=== PATIENT | male | born 1980 | race Hispanic/Latino ===

== ENCOUNTER 2023-01-21 09:12 | Emergency (ER) | payer OTHER ==
--- NOTE | 2023-01-21 09:25 | EDPHYS ---
Physician Documentation [facility] Name: José Miguel Brock Age: 42 yrs Sex: Male : 1980 Arrival Date: 01/21/2023 Time: 09:14 Bed 4 Private MD: ED Physician Jarad Roth HPI: 01/21 10:09 This 42 yrs old Male presents to ER via Ambulatory with complaints of kb Abdominal Pain. 10:09 The patient presents with abdominal pain right lower quadrant, in the left lower kb quadrant. Onset: The symptoms/episode began/occurred yesterday. The symptoms do not radiate. Associated signs and symptoms: none. The symptoms are described as constant. Modifying factors: The symptoms are alleviated by nothing, the symptoms are aggravated by pressure. Severity of pain: At its worst the pain was moderate in the emergency department the pain is unchanged. The patient has not experienced similar symptoms in the past. The patient has not recently seen a physician. Historical: - Allergies: 09:37 No Known Allergies; aa5 - PMHx: 09:37 None; aa5 - PSHx: 09:37 None; aa5 - Immunization history:: Adult Immunizations unknown. - Social history:: Smoking status: Patient reports the use of cigarette tobacco products, smokes one-half pack cigarettes per day. ROS: 10:07 Constitutional: Negative for fever, chills, and weight loss. kb 10:07 Abdomen/GI: Positive for abdominal pain, Negative for nausea, vomiting, and diarrhea. 10:07 All other systems are negative. Exam: 10:07 Constitutional: This is a well developed, well nourished patient who is awake, alert, kb and in no acute distress. Head/Face: Normocephalic, atraumatic. ENT: Moist Mucous membranes Cardiovascular: Regular rate and rhythm with a normal S1 and S2. No gallops, murmurs, or rubs. No pulse deficits. Respiratory: Respirations even and unlabored. No increased work of breathing. Talking in full sentences Skin: Warm, dry with normal turgor. Normal color. MS/ Extremity: Pulses equal, no cyanosis. Neurovascular intact. Full, normal range of motion. Neuro: Awake and alert, GCS 15, oriented to person, place, time, and situation. Moves all extremities. Normal gait. Psych: Awake, alert, with orientation to person, place and time. Behavior, mood, and affect are within normal limits. 10:07 Abdomen/GI: Inspection: abdomen appears normal, Bowel sounds: normal, Palpation: soft, in all quadrants, moderate abdominal tenderness, in the right lower quadrant and left lower quadrant. Vital Signs: 09:22 BP 136 / 85; Pulse 75; Resp 16 S; Temp 98.3(O); Pulse Ox 96% on R/A; Weight 117.93 kg aa5 (R); Height 5 ft. 7 in. (170.18 cm) (R); 09:59 BP 128 / 90; Pulse 74; Resp 15; Pulse Ox 98% ; jl7 10:20 Pain 0/10; jl7 11:29 BP 122 / 87; Pulse 74; Resp 15; Pulse Ox 98% ; jl7 09:22 Body Mass Index 40.72 (117.93 kg, 170.18 cm) aa5 MDM: 09:25 Patient medically screened. kb 10:08 Differential diagnosis: appendicitis, diverticulitis, non-specific abd pain, kb Ureterolithiasis, urinary tract infection. Data reviewed: vital signs, nurses notes. ED course: Patient is a 42-year-old male with no medical history who presents for left lower quadrant pain that began yesterday. Denies any associated symptoms. On exam patient has moderate tenderness to right and left lower quadrants. Serum labs, urinalysis and CT scan ordered.. 11:13 Discussion of test interpretation with radiology: I had a discussion with radiology kb regarding a test interpretation. Discussed CT with Dr Johnson. Acute sigmoid diverticulitis. 11:15 Consideration of Admission/Observation Escalation of care including kb admission/observation considered. Admission considered for diverticulitis but patient is able to tolerate p.o. intake is well-appearing and would like to try oral outpatient antibiotics first. Counseling: I had a detailed discussion with the patient and/or guardian regarding: the historical points, exam findings, and any diagnostic results supporting the discharge/admit diagnosis, lab results, radiology results, the need for outpatient follow up, to return to the emergency department if symptoms worsen or persist or if there are any questions or concerns that arise at home. ED course: Patient is nontoxic in appearance, tolerating p.o. intake. Educated on diagnostic results and need for antibiotics. Educated on strict return precautions including worsening of pain, inability to tolerate antibiotics. Educated on importance of completing entire course of both antibiotics. Verbal understanding received.. 01/21 09:30 Order name: CBC with Diff; Complete Time: 10:01 kb 01/21 09:30 Order name: CMP; Complete Time: 10:20 kb 01/21 09:30 Order name: Lipase; Complete Time: 10:20 kb 01/21 09:30 Order name: Urine Microscopic Only; Complete Time: 09:56 kb 01/21 09:30 Order name: CT Abd/Pelvis - IV Contrast Only kb 01/21 09:49 Order name: Urine Dipstick-Ancillary; Complete Time: 09:53 EDMS 01/21 09:30 Order name: IV Saline Lock; Complete Time: 09:58 kb 01/21 09:30 Order name: Labs collected and sent; Complete Time: 09:58 kb 01/21 09:30 Order name: Urine Dipstick-Ancillary (obtain specimen); Complete Time: 09:50 kb 01/21 11:18 Order name: CT; Complete Time: 11:21 EDMS Administered Medications: 09:58 Drug: NS 0.9% 1000 ml Route: IV; Rate: 1 bolus; Site: left forearm; jl7 11:00 Follow up: Response: No adverse reaction; IV Status: Completed infusion; IV Intake: jl7 1000ml 09:58 Drug: TORadol - (ketorolac) 15 mg Route: IVP; Site: left forearm; jl7 10:20 Follow up: Pain 0/10 Adult; Response: No adverse reaction; Pain is decreased jl7 11:30 Drug: Cipro (ciprofloxacin) 500 mg Route: PO; jl7 11:30 Follow up: Response: Medication administered at discharge. jl7 11:30 Drug: Flagyl (metroNIDAZOLE) 500 mg Route: PO; jl7 11:30 Follow up: Response: Medication administered at discharge. jl7 Disposition: 11:54 Co-signature as Attending Physician, Jarad Roth MD. rn Disposition Summary: 01/21/23 11:22 Discharge Ordered Location: Home(01/21/23 11:22) kb Condition: Stable(01/21/23 11:22) kb Diagnosis - Diverticulitis of intestine, part unspecified, without perforation or abscess kb without bleeding Followup: kb - With: Private Physician - When: 2 - 3 days - Reason: Recheck today's complaints, Continuance of care, Re-evaluation by your physician Followup: kb - With: Emergency Department - When: As needed - Reason: Worsening of condition Discharge Instructions: - Discharge Summary Sheet kb - Diverticulitis, [id number] kb Forms: - Medication Reconciliation Form kb - Thank You Letter kb - Antibiotic Education kb - Prescription Opioid Use kb Prescriptions: - Flagyl 500 mg Oral Tablet - take 1 tablet by ORAL route every 8 hours for 10 days; 30 tablet; Refills: 0, kb Product Selection Permitted - Cipro 500 mg Oral Tablet - take 1 tablet by ORAL route every 12 hours for 10 days; 20 tablet; Refills: 0, kb Product Selection Permitted Signatures: Dispatcher [employer] EDMS Harper Davis, BRIQUETTE MOLDER-C BRIQUETTE MOLDER-Jarad Alvarez MD MD rn Rebecca David RN RN aa5 Roxanna León RN RN jl7 Corrections: (The following items were deleted from the chart) : 09:25 Home kb kb : 09:25 Stable kb kb 09:25 Unspecified otitis externa, left ear kb kb : 09:25 Acute upper respiratory infection, unspecified kb kb
[2023-01-21] MEDS ORDERED: NA CHLORIDE 0.9% 1,000 ML ONE (09:45)
[2023-01-21] MEDS ORDERED: KETOROLAC 30 MG/ML INJ ONE (09:45)
[2023-01-21 09:49] LABS: Urine Blood Negative (Negative); Urine Glucose Negative (Negative); Urine Protein 1+ (Negative); Urine Specific Gravity 1.015 (1.005-1.030); Urine pH 8.5 (5.0-7.0)
[2023-01-21 09:55] LABS: Urine Bacteria None Seen /HPF (<20); Urine Mucus Slight /HPF (None Seen); Urine RBC <5 /HPF (None Seen)
[2023-01-21 10:00] LABS: Absolute Lymphocytes (CBC) 2.1 K/uL (0.7-4.9); Lymphocytes % 16.3 % (15.3-44.8); MCV 88.6 fL (80-100); MPV 8.7 fL (7.6-11.3); RBC Red Blood Cell Count 4.74 M/uL (4.33-5.43)
[2023-01-21 10:16] LABS: Albumin 3.6 g/dL (3.4-5.0); Bilirubin Total 0.7 mg/dL (0.2-1.0); Potassium 3.9 mmol/L (3.5-5.1); Protein, Total 8.2 g/dL (6.4-8.2)
--- NOTE | 2023-01-21 11:18 | RAD REPORT ---
EXAM DESCRIPTION: CT - Abdomen Pelvis W Contrast - 01/21/2023 10:44 am CLINICAL HISTORY: Lower Abdominal pain, vomiting and nausea. COMPARISON: None. TECHNIQUE: Biphasic, helical CT imaging of the abdomen and pelvis was performed following intravenou s administration of 90 mL Isovue-300. Multiplanar reformats were generated and reviewed. All CT scans are performed using dose optimization technique as appropriate and may include automated exposure control or mA/KV adjustment according to patient size. FINDINGS: No suspicious findings in the lung bases. The liver, spleen, and pancreas show no suspicious findings. Gallbladder and biliary tree are also wi thout suspicious finding. Symmetric renal function is seen with no hydronephrosis or suspicious renal mass. Left renal mid pole cortical 1.6 centimeter fluid density cyst. Small bowel is not dilated. Findings of acute sigmoid diverticulitis with trace fluid tracking along the left pelvic sidewall. No fluid collections. No free air, free fluid or inflammatory stranding. No hernia, mass or bulky lymphadenopathy. The urinary bladder is without significant finding. No suspicious bony findings. IMPRESSION: Findings of uncomplicated acute sigmoid diverticulitis. The findings were communicated to Harper Davis on 01/21/2023 at 11:13 hours.
--- NOTE | 2023-01-21 11:22 | ER ---
Nurse's Notes [facility] Name: José Miguel Brock Age: 42 yrs Sex: Male : 1980 Arrival Date: 01/21/2023 Time: 09:14 Bed 4 Private MD: Diagnosis: Diverticulitis of intestine, part unspecified, without perforation or abscess without bleeding Presentation: 01/21 09:22 Acuity: GREGORY 3 aa5 09:22 Risk Assessment: Do you want to hurt yourself or someone else? Patient reports no aa5 desire to harm self or others. 09:22 Chief complaint: Patient states: lower abd pain that began yesterday, denies aa5 nausea/vomiting/diarrhea. Coronavirus screen: At this time, the client does not indicate any symptoms associated with coronavirus-19. Ebola Screen: Patient denies travel to an Ebola-affected area in the 21 days before illness onset. Initial Sepsis Screen: Does the patient meet any 2 criteria? No. Patient's initial sepsis screen is negative. Does the patient have a suspected source of infection? No. Patient's initial sepsis screen is negative. Onset of symptoms was December 2022. 09:22 Method Of Arrival: Ambulatory aa5 Historical: - Allergies: 09:37 No Known Allergies; aa5 - PMHx: 09:37 None; aa5 - PSHx: 09:37 None; aa5 - Immunization history:: Adult Immunizations unknown. - Social history:: Smoking status: Patient reports the use of cigarette tobacco products, smokes one-half pack cigarettes per day. Screenin:59 [facility] ED Fall Risk Assessment (Adult) History of falling in the last 3 months, jl7 including since admission No falls in past 3 months (0 pts). Abuse screen: Denies threats or abuse. Denies injuries from another. Nutritional screening: No deficits noted. Tuberculosis screening: No symptoms or risk factors identified. Assessment: 09:59 General: Appears in no apparent distress. uncomfortable, Behavior is calm, cooperative, jl7 appropriate for age. Pain: Complains of pain in suprapubic area Is intermittent. Neuro: Level of Consciousness is awake, alert, obeys commands, Oriented to person, place, time, situation. Cardiovascular: Patient's skin is warm and dry. Respiratory: Airway is patent Respiratory effort is even, unlabored, Respiratory pattern is regular, symmetrical. GI: Abdomen is non-distended. : Denies burning with urination, pain with urination. Derm: Skin is pink, warm \T\ dry. 09:59 Pain: Pain currently is 9 out of 10 on a pain scale. jl7 11:00 Reassessment: Patient appears in no apparent distress at this time. Patient and/or jl7 family updated on plan of care and expected duration. Pain level reassessed. Patient is alert, oriented x 3, equal unlabored respirations, skin warm/dry/pink. Patient states feeling better. Patient states symptoms have improved. Vital Signs: 09:22 BP 136 / 85; Pulse 75; Resp 16 S; Temp 98.3(O); Pulse Ox 96% on R/A; Weight 117.93 kg aa5 (R); Height 5 ft. 7 in. (170.18 cm) (R); 09:59 BP 128 / 90; Pulse 74; Resp 15; Pulse Ox 98% ; jl7 10:20 Pain 0/10; jl7 11:29 BP 122 / 87; Pulse 74; Resp 15; Pulse Ox 98% ; jl7 09:22 Body Mass Index 40.72 (117.93 kg, 170.18 cm) aa5 ED Course: 09:14 Patient arrived in ED. mr 09:18 Harper Davis FNP-C [facility]. kb 09:18 Jarad Roth MD is Attending Physician. kb 09:22 Arm band placed on Patient placed in an exam room, on a stretcher. aa5 09:37 Triage completed. aa5 09:38 Roxanna León RN is Primary Nurse. jl7 09:59 Patient has correct armband on for positive identification. Bed in low position. Call jl7 light in reach. Side rails up X 1. Pulse ox on. NIBP on. 09:59 Initial lab(s) drawn, by me, sent to lab. Urine collected: clean catch specimen, clear. jl7 Inserted saline lock: 22 gauge in left forearm, using aseptic technique. Blood collected. 11:31 No provider procedures requiring assistance completed. IV discontinued, intact, jl7 bleeding controlled, No redness/swelling at site. Pressure dressing applied. Administered Medications: 09:58 Drug: NS 0.9% 1000 ml Route: IV; Rate: 1 bolus; Site: left forearm; jl7 11:00 Follow up: Response: No adverse reaction; IV Status: Completed infusion; IV Intake: jl7 1000ml 09:58 Drug: TORadol - (ketorolac) 15 mg Route: IVP; Site: left forearm; jl7 10:20 Follow up: Pain 0/10 Adult; Response: No adverse reaction; Pain is decreased jl7 11:30 Drug: Cipro (ciprofloxacin) 500 mg Route: PO; jl7 11:30 Follow up: Response: Medication administered at discharge. jl7 11:30 Drug: Flagyl (metroNIDAZOLE) 500 mg Route: PO; jl7 11:30 Follow up: Response: Medication administered at discharge. jl7 Medication: 09:59 VIS not applicable for this client. jl7 Intake: 11:00 IV: 1000ml; Total: 1000ml. jl7 Outcome: 09:25 Discharge ordered by MD. kb 11:22 Discharge ordered by MD. kb 11:31 Discharged to home ambulatory. jl7 11:31 Condition: stable 11:31 Discharge instructions given to patient, Instructed on discharge instructions, follow up and referral plans. medication usage, Demonstrated understanding of instructions, follow-up care, medications, Prescriptions given X 2. 11:32 Patient left the ED. jl7 Signatures: Harper Davis, JONY VARGAS-Sarah Rivers mr BarbourRebecca combs, RN RN aa5 Roxanna León RN RN jl7 Corrections: (The following items were deleted from the chart) 10:00 09:58 General: Appears in no apparent distress. uncomfortable, Behavior is calm, jl7 cooperative, appropriate for age, jl7 10:01 09:58 NS 0.9% 1000 ml IV at 1 bolus in left antecubital jl7 jl7 10:01 09:58 TORadol - (ketorolac) 15 mg IVP in left antecubital jl7 jl7
[2023-01-21] MEDS ORDERED: metroNIDAZOLE 500 MG TABLET ONE (11:26)
[2023-01-21] MEDS ORDERED: CIPROFLOXACIN HCL 500 MG TAB ONE (11:26)
[2023-01-21 11:37] VITALS: TEMP 98.3
[2023-01-21 11:38] VITALS: O2SAT 98
[2023-01-21 11:40] VITALS: BP 122/87
== END 2023-01-21 11:32 | disposition home or self-care (01) ==
LOC: ER 09:12
DX: K57.32 Diverticulitis of large intestine without perforation or abscess without bleeding (principal); F17.210 Nicotine dependence, cigarettes, uncomplicated
CPT/HCPCS: 96361; 85025; 36415; 83690; 80053; 74177; 96374; 99284; Q9967; J7030; 81003; 81015